=== PATIENT | female | born 1965 | race Caucasian/White ===

== ENCOUNTER 2020-11-15 13:48 | Outpatient (CLI) | payer OTHER, SELFPAY | END 2020-11-15 13:49 | disposition home or self-care (01) | LOC: ANHCOVIDVC 13:48 | PROVIDERS: PCP Internal Medicine Geriatric Medicine | DX: Z23 Encounter for immunization (principal) | CPT/HCPCS: 0001A; 91300 ==

== ENCOUNTER 2020-12-06 13:39 | Outpatient (CLI) | payer OTHER, SELFPAY | END 2020-12-06 13:40 | disposition home or self-care (01) | LOC: ANHCOVIDVC 13:39 | PROVIDERS: PCP Internal Medicine Geriatric Medicine | DX: Z23 Encounter for immunization (principal) | CPT/HCPCS: 0002A; 91300 ==

== ENCOUNTER 2022-10-21 19:31 | Emergency (ER) | payer OTHER, SELFPAY ==
[2022-10-21 19:38] VITALS: BP 134/81; PULSE 69; RESP 20; TEMP 36.7; O2SAT 99
--- NOTE | 2022-10-21 19:58 | ED.URI ---
HPI - URI/Sore Throat General Chief Complaint: Upper Respiratory Infection Stated Complaint: Congestion/Sore Throat Source: patient and RN notes reviewed History of Present Illness HPI Narrative: 57 yo F presents to urgent care with complaints of congestion, head pressure, cough, runny nose. Patient states this all started on Friday. Patient states she can feel her throat starting to hurt a little today. Patient denies any chest pain, shortness of breath, fevers, chills, or vomiting. Patient has been taking [id number] cold and flu medication with minimal relief. Some parts of this dictation were generated by voice recognition software and may contain typographical and/or grammatical inaccuracies. Related Data Allergies Allergy/AdvReac Type Severity Reaction Status Date / Time No Known Allergies Allergy Unverified 11/20/16 17:43 Review of Systems Review of Systems: CONSTITUTIONAL: Denies fever, chills, or sweats. EYES: Denies visual changes, redness, or discharge. ENT: Reports congestion, runny nose, slight sore throat. CARDIOVASCULAR: Denies chest pain, palpitations, or edema. RESPIRATORY: Reports cough GASTROINTESTINAL: Denies abdominal pain, nausea, vomiting, or diarrhea. GENITOURINARY: Denies dysuria or hematuria. SKIN: Denies rash or itching. MUSCULOSKELETAL: Denies back pain, joint pain, or myalgia. NEUROLOGIC: Denies headache, numbness, or weakness. PMFSH Comments At the time of my signature, I reviewed and agree with the nursing past medical, surgical, social, and family history. There is no relevant family history pertinent to the patient complaint. Exam Narrative: GENERAL: This is a well-nourished, well-developed patient, in no apparent distress. HEAD: normocephalic, atraumatic. EYES: PERRL. Sclera clear/white. Vision is grossly intact. EARS: External ears normal, auditory canals clear and without drainage, TMs normal without perforation. Hearing grossly intact. NOSE: External nose normal with no obvious nasal discharge, nares without redness, no rhinorrhea. THROAT: Mucous membranes moist, posterior pharynx clear. NECK: Neck supple, non-tender without lymphadenopathy, masses or thyromegaly. CARDIOVASCULAR: Regular rate and rhythm without murmurs, gallops, or rubs. RESPIRATORY: Clear to auscultation. Breath sounds equal bilaterally. No wheezes, rales, or rhonchi. GASTROINTESTINAL: Abdomen soft, non-tender, nondistended. Bowel sounds are active. No hepato-splenomegaly, or palpable masses. No guarding. SKIN: warm, intact with no suspicious lesions or rash, good texture and turgor. NEURO: awake, alert, and oriented to person, place and time. There were no obvious focal neurologic abnormalities. Course Course Level of Care: Express Care Visit Vital Signs Vital signs: Vital Signs Temperature 98.0 F 10/21/22 19:38 Pulse Rate 69 10/21/22 19:38 Respiratory Rate 20 10/21/22 19:38 Blood Pressure 134/81 10/21/22 19:38 Pulse Oximetry 99 10/21/22 19:38 Oxygen Delivery Room Air 10/21/22 19:38 Temperature 98.0 F 10/21/22 19:38 Pulse Rate 69 10/21/22 19:38 Respiratory Rate 20 10/21/22 19:38 Blood Pressure 134/81 10/21/22 19:38 Pulse Oximetry 99 10/21/22 19:38 Oxygen Delivery Room Air 10/21/22 19:38 Reviewed MDM - URI/Sore Throat MDM Narrative Medical decision making narrative: Viral illness may last between 7-12days; antibiotic is NOT recommended at this time. Recommend antihistamine such as Benadryl at night time and Claritin/Zyrtec/[place] during the day. Increase your Vitamin C intake. Steam from hot showers help with congestion. Use inhaler as needed for cough, wheezing, shortness of breath or chest tightness. Also, recommend symptomatic treatment includes: rest, fluids, increase humidity of the air at home with a humidifier in the bedroom. Recommend Acetaminophen or nonsteroidal anti-inflammatory agents(NSAIDs) as directed in the bottle to reduce fever and/
== END 2022-10-21 20:05 | disposition home or self-care (01) ==
PROVIDERS: Emergency Provider Nurse Practitioner Family; PCP Internal Medicine Geriatric Medicine
DX: J06.9 Acute upper respiratory infection, unspecified (principal)
CPT/HCPCS: 99213; G0463